=== PATIENT | male | born 2000 | race Caucasian/White ===

== ENCOUNTER 2018-05-25 11:41 | Emergency (ER) | payer BC ==
[2018-05-25 11:55] VITALS: BP 129/85
--- NOTE | 2018-05-25 13:08 | UC ---
Skin Complaint HPI - HPI Summary HPI Summary: Pt c/o of wound on left outer upper pinna of ear that began 1 week ago. Pt reports that at ~ 0300 sunday morning pt fell after friend to jump on back fro "piggy back" and scraped ear on pavement. Pt denies HSIEH, LOC or loss of hearing or discharge from ear canal, or fever. Pt has been applying rubbing alcohol and triple antibiotic ointment to wound with no improvement. Pt is concerned that wound is infected because he has noticed purulent discharge from wound. - History of Current Complaint Chief Complaint: UCSkin Time Seen by Provider: 05/25/18 12:10 Stated Complaint: LEFT EAR INJURY Hx Obtained From: Patient Onset/Duration: Gradual Onset, Lasting Days, Still Present Skin Exposure Onset/Duration: Days Ago Timing: Constant Onset Severity: Mild Current Severity: Moderate Pain Intensity: 3 Pain Scale Used: 0-10 Numeric Location: Discrete, Ear (Left) Character: Redness, Painful Aggravating Factor(s): Touch Alleviating Factor(s): Nothing Associated Signs & Symptoms: Positive: Drainage, Tenderness - Allergy/Home Medications Allergies/Adverse Reactions: Allergies Allergy/AdvReac Type Severity Reaction Status Date / Time No Known Allergies Allergy Verified 05/25/18 11:54 Review of Systems Constitutional: Negative Skin: Other - wound, not healing wiht purulent discharge, lef tear Eyes: Negative ENT: Negative, Other - left upper outer pinna, non healing wound Respiratory: Negative Cardiovascular: Negative Gastrointestinal: Negative Genitourinary: Negative Motor: Negative Neurovascular: Negative Musculoskeletal: Negative Neurological: Negative Psychological: Negative Is Patient Immunocompromised?: No All Other Systems Reviewed And Are Negative: Yes PMH/Surg Hx/FS Hx/Imm Hx Previously Healthy: Yes - Surgical History Surgical History: Yes Surgery Procedure, Year, and Place: TONGUE TIED - Family History Known Family History: Positive: Cardiac Disease - Social History Occupation: Student Lives: Dormitory/Roommates Alcohol Use: Weekly Substance Use Type: None Smoking Status (MU): Light Every Day Tobacco Smoker Amount Used/How Often: VAPES DAILY Have You Smoked in the Last Year: Yes - Immunization History Vaccination Up to Date: Yes Physical Exam Triage Information Reviewed: Yes Appearance: Well-Appearing Vital Signs: Initial Vital Signs Temp 98.7 F 05/25/18 11:50 Pulse 87 05/25/18 11:50 Resp 15 05/25/18 11:50 BP 129/85 05/25/18 11:50 Pulse Ox 98 05/25/18 11:50 Vital Signs Reviewed: Yes Eye Exam: Normal ENT: Positive: Other - left outer ear pinna, wound Dental Exam: Normal Neck exam: Normal Respiratory Exam: Normal Cardiovascular Exam: Normal Musculoskeletal Exam: Normal Neurological Exam: Normal Psychological Exam: Normal Skin Exam: Other - ~ 2cm diamter macerated wound on lef touter ear pinna, pt has triple antibiotic ountment on wound. wound has granulated tissue and congesled blood. pururlent discharge easily wiped away. culture taken. Course/Dx - Differential Diagnoses - Skin Complaint Differential Diagnoses: Cellulitis, MRSA - Diagnoses Provider Diagnoses: infected wound left ear Discharge - Sign-Out/Discharge Documenting (check all that apply): Patient Departure All imaging exams completed and their final reports reviewed: No Studies - Discharge Plan Condition: Stable Disposition: HOME Prescriptions: Sulfamethox/Trimethoprim DS* [Bactrim DS 800/160 TAB*] 1 tab PO Q12H #20 tab Patient Education Materials: Wound Infection (ED), Acute Wound Care (ED) Referrals: [facility] [Outside] - If Needed No Primary Care Phys,NOPCP [Primary Care Provider] - Additional Instructions: Please Follow up with your PCP and/or [facility]: [address] [place] [address] - Billing Disposition and Condition Condition: STABLE Disposition: Home - Attestation Statements Provider Attestation: I was available for consult. This patient was seen by the [facility]. The patient was not presented to, seen by, or examined by me. -Van
--- NOTE | 2018-05-29 07:35 | UC ---
- Progress Note Progress Note: + S. Aureus on bactrim no change await final Discharge - Sign-Out/Discharge Documenting (check all that apply): Post-Discharge Follow Up All imaging exams completed and their final reports reviewed: No Studies - Discharge Plan Condition: Stable Disposition: HOME Prescriptions: Sulfamethox/Trimethoprim DS* [Bactrim DS 800/160 TAB*] 1 tab PO Q12H #20 tab Patient Education Materials: Wound Infection (ED), Acute Wound Care (ED) Referrals: [facility] [Outside] - If Needed No Primary Care Phys,NOPCP [Primary Care Provider] - Additional Instructions: Please Follow up with your PCP and/or [facility]: [address] [place] [address] - Billing Disposition and Condition Condition: STABLE Disposition: Home
== END 2018-05-25 12:45 | disposition home or self-care (01) ==
LOC: UCCORT 11:41
DX: S00.402A Unspecified superficial injury of left ear, initial encounter (principal); L08.9 Local infection of the skin and subcutaneous tissue, unspecified; F17.200 Nicotine dependence, unspecified, uncomplicated; X58.XXXA Exposure to other specified factors, initial encounter; Y92.9 Unspecified place or not applicable
CPT/HCPCS: 87070; 87077; 87186; 87205; 87640; 87641; 99202; G0463